=== PATIENT | male | born 1985 | race Caucasian/White ===

== ENCOUNTER 2023-02-24 00:04 | Emergency (ER) | payer BC ==
[~2023-02-24] VITALS: Ht 190.5 cm; Wt 154.2 kg
[2023-02-24 00:04] VITALS: BP 135/91; TEMP 98.1; O2SAT 98
== END 2023-02-24 01:03 | disposition home or self-care (01) ==
LOC: ER 00:08
DX: J32.9 Chronic sinusitis, unspecified (principal); F32.A Depression, unspecified